=== PATIENT | male | born 1960 | race American Indian/Alaskan Native ===

== ENCOUNTER 2020-01-01 15:42 | Emergency (ER) | payer SELFPAY ==
[2020-01-01 16:34] LABS: Basophils % (Auto) 0.5 % (0.0-1.8); Eosinophils % (Auto) 0.3 % (0.0-4.3); Hematocrit 40.7 % (35.5-45.6); Hemoglobin 13.3 gm/dl (11.8-15.2); Lymphocytes # (Auto) 2.1 K/mm3 (1.2-5.4); Mean Corpuscular HGB Conc 33 % (32-34); Mean Corpuscular Volume 82 fl (84-94); Monocytes # (Auto) 0.8 K/mm3 (0.0-0.8); Monocytes % (Auto) 13.4 % (0.0-7.3); Platelet Count 195 K/mm3 (140-440); Red Blood Count 4.98 M/mm3 (3.65-5.03); Red Cell Distribution Width 16.6 % (13.2-15.2)
--- NOTE | 2020-01-01 16:54 | Emergency Department Report ---
<MYA MARCELINO - Last Filed: 01/01/20 19:55> ED Alcohol HPI - General Chief Complaint: Alcohol Stated Complaint: DETOX Time Seen by Provider: 01/01/20 16:52 - Related Data Allergies Allergy/AdvReac Type Severity Reaction Status Date / Time oxycodone AdvReac Nausea Verified 01/01/20 22:20 ED Course - Reevaluation(s) Reevaluation #1: 01/01/20 19:55 Patient will be given 1 L of normal saline to correct the mild hyponatremia and hypochloremia. Patient will be allowed to reach sobriety and we will work to have the patient transferred to a detox facility. ED Medical Decision Making - Lab Data Result diagrams: 01/01/20 16:13 01/01/20 16:13 ED Disposition Clinical Impression: Alcohol dependence Disposition: DC-01 TO HOME OR SELFCARE Condition: Stable Instructions: Abuse of Alcohol (ED) Additional Instructions: For mental health counselor, voluntary admission to [facility] has been arranged. Referrals: PRIMARY CARE, [Primary Care Provider] - 3-5 Days <JADEN MARCELINO - Last Filed: 01/02/20 10:04> ED Alcohol HPI - General Source: patient Mode of arrival: Ambulatory Limitations: No Limitations - History of Present Illness Initial Comments: Chief complaint: "I know I cannot stop by myself." HPI: This is a 59-year-old gentleman with history of sarcoidosis and alcohol use who relapsed in June. He had been alcohol free for 1 year. Recently laid off from work considering our current pandemic. He has a history of anxiety. He was unable to afford the Lexapro prescription. He denies suicidal homicidal reaction. He has attempted to to obtain admission to rehabilitation facility. He was referred to our emergency department. Last drink of beer today. He denies any physical concerns. He lives alone. Complaint: alcohol dependence Last Drink: just [employer] Chronic Alcohol Use: Yes Recent Trauma: No Associated Symptoms: denies other symptoms Treatments Prior to Arrival: none ED Review of Systems ROS: Stated complaint: DETOX Other details as noted in HPI Comment: All other systems reviewed and negative Constitutional: denies: fever, malaise Respiratory: denies: cough Cardiovascular: denies: chest pain Musculoskeletal: denies: back pain Psychiatric: anxiety. denies: depression ED Past Medical Hx - Past Medical History Previous Medical History?: Yes Additional medical history: Sarcoidosis - Surgical History Past Surgical History?: Yes Additional Surgical History: Carpal tunnel surgery. Left knee surgery - Social History Smoking Status: Never Smoker Substance Use Type: Alcohol ED Physical Exam - General Limitations: No Limitations General appearance: alert, in no apparent distress - Head Head exam: Present: atraumatic, normocephalic - Eye Eye exam: Present: normal appearance - ENT ENT exam: Present: mucous membranes moist - Neck Neck exam: Present: normal inspection, full ROM - Respiratory Respiratory exam: Present: normal lung sounds bilaterally. Absent: respiratory distress, wheezes, rales, rhonchi - Cardiovascular Cardiovascular Exam: Present: regular rate, normal rhythm, normal heart sounds. Absent: systolic murmur, diastolic murmur, rubs, gallop - GI/Abdominal GI/Abdominal exam: Present: soft, normal bowel sounds. Absent: distended, tenderness, guarding, rebound - Rectal Rectal exam: Present: deferred - Extremities Exam Extremities exam: Present: normal inspection - Neurological Exam Neurological exam: Present: alert, oriented X3 - Psychiatric Psychiatric exam: Present: normal affect, normal mood - Skin Skin exam: Present: warm, dry, intact, normal color. Absent: rash ED Course Vital Signs 01/01/20 01/01/20 01/01/20 16:03 18:57 20:00 Temperature 98.2 F 97.7 F Pulse Rate 80 94 H Respiratory 20 18 16 Rate Blood Pressure 137/88 Blood Pressure 121/86 [Right] O2 Sat by Pulse 96 96 Oximetry 01/02/20 01/02/20 06:44 06:51 Temperature 98.6 F Pulse Rate 85 Respiratory 20 Rate Blood Pressure Blood Pressure 135/97 [Right] O2 Sat by Pulse 95 Oximetry ED Medical Decision Making - Lab Data Result diagrams: 01/01/20 16:13 01/01/20 16:13 - Medical Decision Making Mr. Cage has a history of alcohol dependence. Recently reviewed labs in June. He desires placement to inpatient rehabilitation facility. He is medically clear for psychiatric care. He denies suicidal or homicidal ideation. He is cooperative and insightful. At this time Mr. Burt is clinically sober. He is discharged to pursue outpatient resources. Mental health ecological risk assessor provided guidance. Critical care attestation.: If time is entered above; I have spent that time in minutes in the direct care of this critically ill patient, excluding procedure time. ED Disposition Is pt being admited?: No Does the pt Need Aspirin: No
[2020-01-01 16:55] LABS: Bilirubin,Urine NEG (Negative); Blood,Urine NEG (Negative); Color,Urine Colorless (Yellow); Protein,Urine <15 mg/dL mg/dL (Negative); Urobilinogen,Urine < 2.0 mg/dL (<2.0)
[2020-01-01 16:58] LABS: Alanine Aminotransferase 65 units/L (7-56); BUN/Creatinine Ratio 9; Blood Urea Nitrogen 7 mg/dL (9-20); Calcium 9.2 mg/dL (8.4-10.2); Hemolysis Index 10
[2020-01-01 17:09] LABS: Amphetamine Screen,Urine PRESUMPTIVE NEGATIVE; Benzodiazepines Screen,Urine PRESUMPTIVE NEGATIVE; Cannabinoid Screen,Urine PRESUMPTIVE NEGATIVE; Cocaine Screen,Urine PRESUMPTIVE NEGATIVE; Methadone Screen,Urine PRESUMPTIVE NEGATIVE; Opiate Screen,Urine PRESUMPTIVE NEGATIVE
[2020-01-01] MEDS ORDERED: SODIUM CHLORIDE 0.9% 1000 ML 1,000 ML IV ONE (18:52)
[2020-01-01] MEDS ORDERED: SODIUM CHLORIDE 0.9% 1000 ML 1,000 ML ONE (22:12)
[2020-01-02] MEDS ORDERED: LORazepam 2 MG/ML VIAL IV ONE (09:02)
[2020-01-02 13:19] VITALS: BP 148/96
== END 2020-01-02 13:45 | disposition home or self-care (01) ==
LOC: ED 15:42
DX: F10.20 Alcohol dependence, uncomplicated (principal); D86.9 Sarcoidosis, unspecified; Z98.890 Other specified postprocedural states; Z88.8 Allergy status to other drugs, medicaments and biological substances
CPT/HCPCS: 36415; 80053; 80307; 81001; 85025; 96374; 99284; J2060; J7030; 80320; G0480

== ENCOUNTER 2020-07-21 06:32 | Emergency (ER) | payer SELFPAY ==
[2020-07-21 08:09] LABS: Basophils # (Auto) 0.1 K/mm3 (0.0-0.1); Basophils % (Auto) 1.4 % (0.0-1.8); Eosinophils % (Auto) 0.3 % (0.0-4.3); Lymphocytes # (Auto) 0.8 K/mm3 (1.2-5.4); Lymphocytes % (Auto) 20.4 % (13.4-35.0); Mean Corpuscular HGB Conc 33 % (32-34); Mean Corpuscular Volume 86 fl (84-94); Monocytes # (Auto) 0.6 K/mm3 (0.0-0.8); Monocytes % (Auto) 13.7 % (0.0-7.3); Platelet Count 162 K/mm3 (140-440); Red Blood Count 4.53 M/mm3 (3.65-5.03); Red Cell Distribution Width 15.5 % (13.2-15.2)
[2020-07-21 08:14] LABS: BUN/Creatinine Ratio 6; Blood Urea Nitrogen 5 mg/dL (9-20); Calcium 9.5 mg/dL (8.4-10.2); Hemolysis Index 3
[2020-07-21] MEDS ORDERED: LORazepam 1 MG TAB PO ONE (08:54)
--- NOTE | 2020-07-21 09:04 | Emergency Department Report ---
ED Alcohol HPI - General Chief Complaint: Alcohol Stated Complaint: ALCOHOL WITHDRAWALS Time Seen by Provider: 07/21/20 08:46 Source: patient Mode of arrival: Ambulatory Limitations: No Limitations - History of Present Illness Initial Comments: 59-year-old male presents to ED with report of alcohol abuse. Patient states he drinks a 12 pack of beer daily. States his last drink was at 1 AM this morning. Patient states he is now having tremors and feels shaky on the inside. He denies any history of alcohol withdrawal seizures. MD Complaint: alcohol withdrawal Chronic Alcohol Use: Yes Associated Symptoms: tremors. denies: nausea, vomiting, syncope, seizure, diaphoresis, abdominal pain, hematemesis, depression, suicidality Treatments Prior to Arrival: none - Related Data Allergies Allergy/AdvReac Type Severity Reaction Status Date / Time oxycodone AdvReac Nausea Verified 07/21/20 07:27 ED Review of Systems ROS: Stated complaint: ALCOHOL WITHDRAWALS Other details as noted in HPI Comment: All other systems reviewed and negative Neurological: other (Patient reports tremors) ED Past Medical Hx - Past Medical History Additional medical history: Sarcoidosis - Surgical History Additional Surgical History: Carpal tunnel surgery. Left knee surgery - Social History Smoking Status: Never Smoker Substance Use Type: Alcohol ED Physical Exam - General Limitations: No Limitations General appearance: alert, in no apparent distress - Head Head exam: Present: atraumatic, normocephalic - Eye Eye exam: Present: normal appearance, EOMI - ENT ENT exam: Present: mucous membranes moist - Neck Neck exam: Present: normal inspection - Respiratory Respiratory exam: Present: normal lung sounds bilaterally. Absent: respiratory distress - Cardiovascular Cardiovascular Exam: Present: regular rate, normal rhythm - GI/Abdominal GI/Abdominal exam: Present: soft. Absent: distended, tenderness - Extremities Exam Extremities exam: Present: normal inspection - Neurological Exam Neurological exam: Present: alert, oriented X3, other (Mild tremor noted in right hand) - Psychiatric Psychiatric exam: Present: normal affect, normal mood - Skin Skin exam: Present: warm, dry, intact, normal color ED Course Vital Signs 07/21/20 07/21/20 07/21/20 07:27 08:37 09:01 Temperature 98 F Pulse Rate 87 88 96 H Respiratory 18 15 Rate Blood Pressure 129/80 139/95 Blood Pressure 150/99 [Left] O2 Sat by Pulse 99 98 Oximetry 07/21/20 09:31 Temperature Pulse Rate 92 H Respiratory 16 Rate Blood Pressure 143/98 Blood Pressure [Left] O2 Sat by Pulse 99 Oximetry ED Medical Decision Making - Lab Data Result diagrams: 07/21/20 07:40 07/21/20 07:40 - Medical Decision Making 59-year-old male presents to ED with complaint of alcohol withdrawal. Patient denies any history of alcohol withdrawal seizures. Patient reports tremors, however appeared to only be apparent when he is aware that he is being watched by healthcare personnel. Nurse reports patient did not exhibit any tremors when she was out of his view, but when she appeared and patient was able to see her, patient became tremulous. At any rate, patient given p.o. Ativan. Vital signs not consistent with alcohol withdrawal, as he is not tachycardic or hypertensive. EtOH level is 140. Patient reports he has been in outpatient rehab previously. Patient given information for rehab programs. Will discharge at this time. - Differential Diagnosis EtOH intoxication, EtOH withdrawal Critical care attestation.: If time is entered above; I have spent that time in minutes in the direct care of this critically ill patient, excluding procedure time. ED Disposition Clinical Impression: Alcohol abuse Disposition: DC-01 TO HOME OR SELFCARE Is pt being admited?: No Condition: Stable Instructions: Abuse of Alcohol (ED) Referrals: PRIMARY CARE [Primary Care Provider] - 3-5 Days [facility] [Provider Group] - 3-5 Days [facility] [Outside] - 3-5 Days Time of Disposition: 09:35
[2020-07-21 09:40] VITALS: BP 143/98
== END 2020-07-21 09:46 | disposition home or self-care (01) ==
LOC: ED 06:32
DX: F10.10 Alcohol abuse, uncomplicated (principal); Z88.8 Allergy status to other drugs, medicaments and biological substances; Z79.899 Other long term (current) drug therapy; Z98.890 Other specified postprocedural states
CPT/HCPCS: 36415; 80048; 80320; 85025; 99283; G0480

== ENCOUNTER 2020-10-29 13:07 | Emergency (ER) | payer SELFPAY ==
--- NOTE | 2020-10-29 13:19 | Emergency Department Report ---
Stated Complaint: NUMBNESS/FOOT/HAND Time Seen by Provider: 10/29/20 13:15 - HPI History of Present Illness: Mr. Cage is a 60-year-old -[place] male that comes to the emergency room intoxicated complaining his feet are numb. He is ambulatory, took an Uber to the ER and is no acute distress. He drank a beer just prior to coming to the emergency room. Patient denies any chest pain, shortness of breath, fever or chills. He denies abdominal pain or back pain. He denies any fall or other injury. Next of kin is listed as his but when we told him we were calling her to come get him he said that would not work. I discussed with the patient his need to lay off the alcohol and his numbness will go away. He has no focal deficit as a said he is ambulatory with normal vital signs. - ROS Review of Systems: Numb feet in the context of alcohol intoxication. Per the EMR patient has been seen for the same before. No HI no SI Patient does not want help for his alcohol use - Exam Vital Signs: Vital Signs 10/29/20 13:15 Temperature 97.8 F Pulse Rate 105 H Respiratory 16 Rate Blood Pressure 135/90 O2 Sat by Pulse 98 Oximetry Physical Exam: Alert and oriented. Ambulatory. Intoxicated. Cooperative S1-S2 Lungs clear Abdomen soft nontender No CVA tenderness No focal neuro deficit DP and PT plus 2 bilateral; no swelling; sensation intact; feet warm bilateral MSE screening note: Focused history and physical exam performed. Due to findings the following was ordered: no life threat pt instructed to go home and not drink alcohol and his numb feet would improve RN asked to have family come and get pt for dc Patient discussed with doctor:: EDGAR DE LOS SANTOS ED Disposition for MSE Clinical Impression: Alcohol abuse Disposition: Z-07 MED SCREENING EXAM-LEFT Is pt being admited?: No Does the pt Need Aspirin: No Condition: Stable Instructions: Alcohol Use Disorder Additional Instructions: stop drinking Referrals: JOSE ANTONIO ABDUL MD [Staff Physician] - 3-5 Days Time of Disposition: 13:19
[2020-10-29 13:20] VITALS: BP 135/90
== END 2020-10-29 13:20 | disposition left against medical advice (07) ==
LOC: ED 13:07
DX: R20.0 Anesthesia of skin (principal); Z53.21 Procedure and treatment not carried out due to patient leaving prior to being seen by health care provider

== ENCOUNTER 2020-11-01 15:28 | Emergency (ER) | payer SELFPAY ==
[2020-11-01 15:40] VITALS: BP 133/98
--- NOTE | 2020-11-01 16:12 | Emergency Department Report ---
Chief Complaint: Medical Clearance Stated Complaint: TUNDE HAND/FEET NUMB - HPI History of Present Illness: 60-year-old -Citizen Of The [place] male presents to the emergency room stating his hands and feet are numb. Patient states this is been going on for several months. Patient started off his interview process with stating that he has been here for 3 hours. It was noted the patient was only here for 40 minutes. When asked has the patient followed up with a primary care provider he states he does not have 1 then patient states that he saw a primary care provider today and they told him to come to the emergency room. Patient was recently seen here for the same complaints on October 29, 2020. Patient was encouraged to discontinue alcohol use and was told that his numbness should improve. Patient continues to drink. - Exam Vital Signs: Vital Signs 11/01/20 15:37 Temperature 98.1 F Pulse Rate 105 H Respiratory 20 Rate Blood Pressure 133/98 O2 Sat by Pulse 96 Oximetry Physical Exam: Patient is alert and oriented no acute distress Breathing is effortless no signs of distress Patient is ambulating without difficulties MSE screening note: Focused history and physical exam performed. Due to findings the following was ordered: 60-year-old -Citizen Of [place] male presents to the emergency room stating his hands and feet are numb. Patient states this is been going on for several months. Patient started off his interview process with stating that he has been here for 3 hours. It was noted the patient was only here for 40 minutes. When asked has the patient followed up with a primary care provider he states he does not have 1 then patient states that he saw a primary care provider today and they told him to come to the emergency room. Patient was recently seen here for the same complaints on October 29, 2020. Patient was encouraged to discontinue alcohol use and was told that his numbness should improve. Patient continues to drink. Discussed with patient he needs to follow-up with a primary care provider. He needs to cut back on his alcohol use as this is most likely a contributory factor for his numbness to his hands. ED Disposition for [facility] Disposition: Z- MED SCREENING EXAM-LEFT Is pt being admited?: No Does the pt Need Aspirin: No Condition: Stable Additional Instructions: Recommend following up with a community provider such as a primary care provider. Is a need to drop primary care labs. Referrals: JOSE ANTONIO ABDUL MD [Staff Physician] - 3-5 Days [facility] [Provider Group] - 3-5 Days
== END 2020-11-01 16:00 | disposition left against medical advice (07) ==
LOC: ED 15:28
DX: R20.0 Anesthesia of skin (principal); Z53.21 Procedure and treatment not carried out due to patient leaving prior to being seen by health care provider

== ENCOUNTER 2020-11-18 02:18 | Inpatient (IN) | payer OTHER ==
[2020-11-18 03:41] LABS: Basophils % (Auto) 0.6 % (0.0-1.8); Eosinophils # (Auto) 0.1 K/mm3 (0.0-0.4); Lymphocytes # (Auto) 2.2 K/mm3 (1.2-5.4); Lymphocytes % (Auto) 43.8 % (13.4-35.0); Mean Corpuscular HGB Conc 33 % (32-34); Mean Corpuscular Volume 87 fl (84-94); Monocytes # (Auto) 0.6 K/mm3 (0.0-0.8); Platelet Count 192 K/mm3 (140-440); Red Blood Count 4.82 M/mm3 (3.65-5.03); Red Cell Distribution Width 15.6 % (13.2-15.2)
[2020-11-18 03:52] LABS: Bilirubin,Urine NEG (Negative); Blood,Urine SM (Negative); Color,Urine Straw (Yellow); Urobilinogen,Urine < 2.0 mg/dL (<2.0); WBC,Urine < 1.0 /HPF (0.0-6.0)
[2020-11-18 04:04] LABS: Alanine Aminotransferase 143 units/L (7-56); Albumin 4.7 g/dL (3.9-5); BUN/Creatinine Ratio 10; Blood Urea Nitrogen 8 mg/dL (9-20); Hemolysis Index 13
[2020-11-18] MEDS ORDERED: LORazepam 2 MG/ML VIAL IV PRN ×2 (04:37→19:16)
[2020-11-18] MEDS ORDERED: LORazepam 2 MG TAB PO PRN ×2 (04:37)
[2020-11-18] MEDS ORDERED: THIAMINE 100 MG, FOLIC ACID 1 MG, MULTIPLE VITAMIN INJ, ADULT 10 ML in SODIUM CHLORIDE ... IV ONE (04:37)
[2020-11-18] MEDS ORDERED: ACETAMINOPHEN 325 MG TAB PO PRN (04:38)
[2020-11-18] MEDS ORDERED: ONDANSETRON 4 MG ODT TAB PO PRN (04:38)
--- NOTE | 2020-11-18 04:38 | Emergency Department Report ---
<SOURAV LAO - Last Filed: 11/18/20 04:50> ED General Adult HPI - General Chief complaint: Neuro Symptoms/Deficit Stated complaint: PAIN/NUMBNESS TO HAND/FEET/ETOH X 5MTHS PUI?: No Time Seen by Provider: 11/18/20 03:43 Source: patient, RN notes reviewed Mode of arrival: Ambulatory Limitations: Other (The patient is intoxicated) - History of Present Illness Initial comments: The patient was evaluated in the emergency department for symptoms described in the history of present illness. He/she was evaluated in the context of the global COVID-19 pandemic, which necessitated consideration that the patient might be at risk for infection with the virus that causes COVID-19. Institutional protocols and algorithms that pertain to the evaluation of patients at risk for COVID-19 are in a state of rapid change based on information released by regulatory bodies including the CDC and federal and [facility] organizations. These policies and algorithms were followed during the patient's care in the emergency department. Please note that these policies, procedures and recommendations changed on a rapid basis. The patient is a 60-year-old gentleman. He presents to the ER today with a complaint of painless numbness in his bilateral feet, and hands for 5 months. The patient is intoxicated, and noted to be actively consuming alcohol during my interview. We promptly called security services, who took the patient's belongings, and placed them in a secure locker. The patient is not homicidal or suicidal. He denies physical pain at this time. He is not accompanied by friends or family at this time for collateral information or additional information. The patient then states that he would like to participate in alcohol detox. The patient lives by himself, and does not have a sober adult who can come by and pick him up. The patient denies trauma. The patient denies headache, neck pain, chest pain, abdominal pain, shortness of breath, loss of taste and smell. -: month(s) Location: left, right, upper extremity, lower extremity Quality: other Consistency: other Improves with: other Worsens with: other - Related Data Previous Rx's Medication Instructions Recorded Last Taken Type Multivitamin with Folic Acid [Cvs 400 mcg PO QDAY #30 tablet 11/18/20 Unknown Rx One Daily Essential Tablet] Permethrin 5% [Acticin 5% CREAM] 1 applicatio TP ONCE #2 tube 11/18/20 Unknown Rx chlordiazePOXIDE [Librium] 25 mg PO Q6H PRN #25 capsule 11/18/20 Unknown Rx Allergies Allergy/AdvReac Type Severity Reaction Status Date / Time oxycodone AdvReac Nausea Verified 11/01/20 15:37 ED Review of Systems Constitutional: denies: fever Eyes: denies: eye discharge ENT: denies: epistaxis Respiratory: denies: cough Cardiovascular: denies: chest pain Gastrointestinal: denies: abdominal pain Genitourinary: denies: dysuria Musculoskeletal: denies: back pain Neurological: as per HPI. denies: headache Psychiatric: denies: homicidal thoughts, suicidal thoughts ED Past Medical Hx - Past Medical History Additional medical history: Sarcoidosis - Surgical History Additional Surgical History: Carpal tunnel surgery. Left knee surgery - Social History Smoking Status: Never Smoker Substance Use Type: Alcohol - Medications Home Medications: Home Medications Medication Instructions Recorded Confirmed Last Taken Type Multivitamin with Folic Acid [Cvs 400 mcg PO QDAY #30 tablet 11/18/20 Unknown Rx One Daily Essential Tablet] Permethrin 5% [Acticin 5% CREAM] 1 applicatio TP ONCE #2 tube 11/18/20 Unknown Rx chlordiazePOXIDE [Librium] 25 mg PO Q6H PRN #25 capsule 11/18/20 Unknown Rx ED Physical Exam - General Limitations: Other (The patient is intoxicated) General appearance: alert, appears intoxicated - Head Head exam: Present: atraumatic, normocephalic - Eye Eye exam: Present: normal appearance, EOMI. Absent: nystagmus - ENT ENT exam: Present: normal exam, normal orophraynx, mucous membranes moist, normal external ear exam - Neck Neck exam: Present: normal inspection, full ROM. Absent: tenderness, m eningismus - Respiratory Respiratory exam: Present: normal lung sounds bilaterally. Absent: respiratory distress, wheezes, rales, rhonchi, stridor, decreased breath sounds - Cardiovascular Cardiovascular Exam: Present: regular rate, normal rhythm, normal heart sounds. Absent: bradycardia, tachycardia, irregular rhythm, systolic murmur, diastolic murmur, rubs, gallop - GI/Abdominal GI/Abdominal exam: Present: soft. Absent: distended, tenderness, guarding, rebound, rigid, pulsatile mass - Rectal Rectal exam: Present: deferred - Extremities Exam Extremities exam: Present: normal inspection, full ROM, other (2+ pulses noted in the bilateral upper and lower extremities. There is no palpable cord. negative Homans sign. Muscular compartments are soft. The pelvis is stable.). Absent: pedal edema, calf tenderness - Back Exam Back exam: Present: normal inspection, full ROM. Absent: tenderness, CVA tenderness (R), CVA tenderness (L), paraspinal tenderness, vertebral tenderness - Neurological Exam Neurological exam: Present: alert, other (No facial droop. Tongue midline. Extraocular movements intact bilaterally. Facial sensation intact to light touch in V1, V2, V3 distribution bilaterally. 5 and a 5 strength in 4 extremities. Sensation intact to light touch in 4 extremities.). Absent: motor sensory deficit - Psychiatric Psychiatric exam: Present: anxious. Absent: homicidal ideation, suicidal ideation - Skin Skin exam: Present: warm, other (Patient has a number of punctate macular lesions, with no pus or streaking. Suspicious for arthropod bites) ED Course - Reevaluation(s) Reevaluation #1: 11/18/20 04:44 Differential diagnosis, including but not limited to: Alcohol dependence, alcohol intoxication, neuropathy, vitamin deficiency, case management patient, general medical exam Assessment and plan: 60-year-old gentleman who was intoxicated, with a complaint of nonspecific distal extremity numbness for 5 months. He has a nonfocal motor examination, is protecting his airway, is cooperative and not homicidal suicidal. Does not meet criteria for 1013 hold Physical exam unremarkable with the exception of sporadic lesions suggestive of arthropod bites, and evidence of mild malnutrition. Patient will be held pending clinical sobriety. Laboratory studies fairly unremarkable, hyponatremia is mild, and likely related to beer consumption. Transaminitis is likely secondary to alcohol consumption. Serum toxicology study unremarkable. We will provide the patient with outpatient resources for detox. He will also be discharged with prescription for permethrin, multivitamin, and Librium. Patient will be observed in this ER pending clinical sobriety. Reevaluation #2: 11/18/20 04:50 Care will be transferred to the oncoming ER physician to discharge when clinically sober, or when a sober adult can come by and pick the patient up and assume care for him. ED Medical Decision Making - Lab Data Result diagrams: 11/18/20 03:14 11/18/20 03:14 Vital Signs 11/18/20 02:46 Temperature 97.9 F Pulse Rate 92 H Respiratory 18 Rate Blood Pressure 132/97 O2 Sat by Pulse 96 Oximetry Lab Results 11/18/20 11/18/20 11/18/20 Range/Units 03:14 03:14 03:32 WBC 5.1 (4.5-11.0) K/mm3 RBC 4.82 (3.65-5.03) M/mm3 Hgb 14.0 (11.8-15.2) gm/dl Hct 42.0 (35.5-45.6) % MCV 87 (84-94) fl MCH 29 (28-32) pg MCHC 33 (32-34) % RDW 15.6 H (13.2-15.2) % Plt Count 192 (140-440) K/mm3 Lymph % (Auto) 43.8 H (13.4-35.0) % Stephens % (Auto) 12.0 H (0.0-7.3) % Eos % (Auto) 1.0 (0.0-4.3) % Baso % (Auto) 0.6 (0.0-1.8) % Lymph # (Auto) 2.2 (1.2-5.4) K/mm3 Stephens # (Auto) 0.6 (0.0-0.8) K/mm3 Eos # (Auto) 0.1 (0.0-0.4) K/mm3 Baso # (Auto) 0.0 (0.0-0.1) K/mm3 Seg Neutrophils % 42.6 (40.0-70.0) % Seg Neutrophils # 2.2 (1.8-7.7) K/mm3 Sodium 130 L (137-145) mmol/L Potassium 4.3 (3.6-5.0) mmol/L Chloride 89.4 L (98-107) mmol/L Carbon Dioxide 25 (22-30) mmol/L Anion Gap 20 mmol/L BUN 8 L (9-20) mg/dL Creatinine 0.8 (0.8-1.3) mg/dL Estimated GFR > 60 ml/min BUN/Creatinine Ratio 10 % Glucose 92 (75-100) mg/dL Calcium 9.0 (8.4-10.2) mg/dL Magnesium (1.7-2.3) mg/dL Total Bilirubin 0.50 (0.1-1.2) mg/dL AST 172 H (5-40) units/L ALT 143 H (7-56) units/L Alkaline Phosphatase 48 (35-129) units/L Total Creatine Kinase (55-170) units/L Total Protein 8.2 (6.3-8.2) g/dL Albumin 4.7 (3.9-5) g/dL Albumin/Globulin Ratio 1.3 % Urine Color Straw (Yellow) Urine Turbidity Clear (Clear) Urine pH 6.0 (5.0-7.0) Ur Specific [place] 1.005 (1.003-1.030) Urine Protein 30 mg/dl (Negative) mg/dL Urine Glucose (UA) Neg (Negative) mg/dL Urine Ketones Neg (Negative) mg/dL Urine Blood Sm (Negative) Urine Nitrite Neg (Negative) Urine Bilirubin Neg (Negative) Urine Urobilinogen < 2.0 (<2.0) mg/dL Ur Leukocyte Esterase Neg (Negative) Urine WBC (Auto) < 1.0 (0.0-6.0) /HPF Urine RBC (Auto) 0.0 (0.0-6.0) /HPF U Epithel Cells (Auto) < 1.0 (0-13.0) /HPF Salicylates (2.8-20.0) mg/dL Acetaminophen (10.0-30.0) ug/mL Plasma/Serum Alcohol (0-0.07) % 11/18/20 11/18/20 11/18/20 Range/Units 03:37 03:37 03:37 WBC (4.5-11.0) K/mm3 RBC (3.65-5.03) M/mm3 Hgb (11.8-15.2) gm/dl Hct (35.5-45.6) % MCV (84-94) fl MCH (28-32) pg MCHC (32-34) % RDW (13.2-15.2) % Plt Count (140-440) K/mm3 Lymph % (Auto) (13.4-35.0) % Stephens % (Auto) (0.0-7.3) % Eos % (Auto) (0.0-4.3) % Baso % (Auto) (0.0-1.8) % Lymph # (Auto) (1.2-5.4) K/mm3 Stephens # (Auto) (0.0-0.8) K/mm3 Eos # (Auto) (0.0-0.4) K/mm3 Baso # (Auto) (0.0-0.1) K/mm3 Seg Neutrophils % (40.0-70.0) % Seg Neutrophils # (1.8-7.7) K/mm3 Sodium (137-145) mmol/L Potassium (3.6-5.0) mmol/L Chloride (98-107) mmol/L Carbon Dioxide (22-30) mmol/L Anion Gap mmol/L BUN (9-20) mg/dL Creatinine (0.8-1.3) mg/dL Estimated GFR ml/min BUN/Creatinine Ratio % Glucose (75-100) mg/dL Calcium (8.4-10.2) mg/dL Magnesium 2.10 (1.7-2.3) mg/dL Total Bilirubin (0.1-1.2) mg/dL AST (5-40) units/L ALT (7-56) units/L Alkaline Phosphatase (35-129) units/L Total Creatine Kinase 252 H (55-170) units/L Total Protein (6.3-8.2) g/dL Albumin (3.9-5) g/dL Albumin/Globulin Ratio % Urine Color (Yellow) Urine Turbidity (Clear) Urine pH (5.0-7.0) Ur Specific [place] (1.003-1.030) Urine Protein (Negative) mg/dL Urine Glucose (UA) (Negative) mg/dL Urine Ketones (Negative) mg/dL Urine Blood (Negative) Urine Nitrite (Negative) Urine Bilirubin (Negative) Urine Urobilinogen (<2.0) mg/dL Ur Leukocyte Esterase (Negative) Urine WBC (Auto) (0.0-6.0) /HPF Urine RBC (Auto) (0.0-6.0) /HPF U Epithel Cells (Auto) (0-13.0) /HPF Salicylates < 0.3 L (2.8-20.0) mg/dL Acetaminophen 5.0 L (10.0-30.0) ug/mL Plasma/Serum Alcohol (0-0.07) % 03/01/21 Range/Units 03:37 WBC (4.5-11.0) K/mm3 RBC (3.65-5.03) M/mm3 Hgb (11.8-15.2) gm/dl Hct (35.5-45.6) % MCV (84-94) fl MCH (28-32) pg MCHC (32-34) % RDW (13.2-15.2) % Plt Count (140-440) K/mm3 Lymph % (Auto) (13.4-35.0) % [place] % (Auto) (0.0-7.3) % Eos % (Auto) (0.0-4.3) % Baso % (Auto) (0.0-1.8) % Lymph # (Auto) (1.2-5.4) K/mm3 [place] # (Auto) (0.0-0.8) K/mm3 Eos # (Auto) (0.0-0.4) K/mm3 Baso # (Auto) (0.0-0.1) K/mm3 Seg Neutrophils % (40.0-70.0) % Seg Neutrophils # (1.8-7.7) K/mm3 Sodium (137-145) mmol/L Potassium (3.6-5.0) mmol/L Chloride (98-107) mmol/L Carbon Dioxide (22-30) mmol/L Anion Gap mmol/L BUN (9-20) mg/dL Creatinine (0.8-1.3) mg/dL Estimated GFR ml/min BUN/Creatinine Ratio % Glucose (75-100) mg/dL Calcium (8.4-10.2) mg/dL Magnesium (1.7-2.3) mg/dL Total Bilirubin (0.1-1.2) mg/dL AST (5-40) units/L ALT (7-56) units/L Alkaline Phosphatase (35-129) units/L Total Creatine Kinase (55-170) units/L Total Protein (6.3-8.2) g/dL Albumin (3.9-5) g/dL Albumin/Globulin Ratio % Urine Color (Yellow) Urine Turbidity (Clear) Urine pH (5.0-7.0) Ur Specific [place] (1.003-1.030) Urine Protein (Negative) mg/dL Urine Glucose (UA) (Negative) mg/dL Urine Ketones (Negative) mg/dL Urine Blood (Negative) Urine Nitrite (Negative) Urine Bilirubin (Negative) Urine Urobilinogen (<2.0) mg/dL Ur Leukocyte Esterase (Negative) Urine WBC (Auto) (0.0-6.0) /HPF Urine RBC (Auto) (0.0-6.0) /HPF U Epithel Cells (Auto) (0-13.0) /HPF Salicylates (2.8-20.0) mg/dL Acetaminophen (10.0-30.0) ug/mL Plasma/Serum Alcohol 0.44 H (0-0.07) % - EKG Data -: EKG Interpreted by Me EKG shows normal: sinus rhythm Rate: normal - EKG Data When compared to previous EKG there are: previous EKG unavailable 11/18/20 04:44 Sinus rhythm, 79 bpm. Normal axis, normal intervals, left ventricular hypertrophy, poor R wave progression, nonspecific ST-T wave abnormality. The patient denies chest pain. This is an abnormal EKG. This is not a STEMI. ED Disposition Clinical Impression: Alcohol withdrawal Disposition: DC-09 OP ADMIT IP TO THIS HOSP Is pt being admited?: No Does the pt Need Aspirin: No Condition: Fair Additional Instructions: Recommend that patient avoid consumption of alcohol. Please make certain to eat at least 3-4 meals per day, and take the multivitamin as directed. Use a Librium medication as needed for sensation of alcohol withdrawal and shakes. Please follow-up with outpatient detox resources that have been provided to the patient. Please follow-up with a primary care doctor within the next month. Use the permethrin cream as directed. Recommend having home/apartment evaluated by an tile grader for possible arthropod/insect infestation. Recommend washing all clothing and bedding's with hot water and soap. Recommend purchasing an [id number] mattress cover in case patient has an insect/bedbug infestation. Long-term complications of alcohol consumption include addiction, disability, loss of quality of life, and organ dysfunction. Please return to the emergency room right away with new pain, worsened pain, migration of pain, projectile vomiting, change in mental status, confusion, inability to tolerate liquid feeds, homicidality, suicidality, or any new, worsened or different symptoms not present on the initial emergency room ev aluation. Prescriptions: Permethrin 5% [Acticin 5% CREAM] 1 applicatio TP ONCE #2 tube Multivitamin with Folic Acid [Cvs One Daily Essential Tablet] 400 mcg PO QDAY #30 tablet chlordiazePOXIDE [Librium] 25 mg PO Q6H PRN #25 capsule PRN Reason: Alcohol Withdrawal Referrals: [facility] [Provider Group] - 3-5 Days <CONCHIS PRIDE - Last Filed: 11/18/20 14:20> ED Course - Reevaluation(s) Reevaluation #3: 11/18/20 08:20 Patient came out of his room wearing only his underwear. Patient still intoxicated. We will continue to monitor. Reevaluation #4: 11/18/20 11:21 Patient is still disoriented in time place and person. Alcohol level is 0.37. We will continue to monitor. Reevaluation #5: 11/18/20 14:22 Patient is alert however disoriented in time and person and he recognized that he is in [facility]. Patient found to be tachycardic at a rate of 121. CIWA protocol initiated. ED Medical Decision Making - Lab Data Result diagrams: 11/18/20 03:14 11/18/20 03:14 <DUANE ALVAREZ - Last Filed: 11/19/20 01:02> ED Review of Systems ROS: Stated complaint: PAIN/NUMBNESS TO HAND/FEET/ETOH X 5MTHS Other details as noted in HPI ED Course Vital Signs 11/18/20 11/18/20 11/18/20 02:46 04:51 06:12 Temperature 97.9 F Pulse Rate 92 H 80 77 Respiratory 18 12 12 Rate Blood Pressure 132/97 Blood Pressure 143/97 136/97 [Right] O2 Sat by Pulse 96 96 96 Oximetry 11/18/20 11/18/20 11/18/20 07:39 10:30 15:33 Temperature Pulse Rate 76 112 H 106 H Respiratory 27 H 23 21 Rate Blood Pressure Blood Pressure 135/97 117/78 116/74 [Right] O2 Sat by Pulse 100 93 94 Oximetry 11/18/20 11/19/20 19:36 00:20 Temperature 98.2 F 98.2 F Pulse Rate 115 H 111 H Respiratory 22 22 Rate Blood Pressure Blood Pressure 134/99 149/106 [Right] O2 Sat by Pulse 99 100 Oximetry - Reevaluation(s) Reevaluation #5: 11/19/20 01:02 Patient persistently tachycardic despite CIWA protocol. We will admit the patient to the hospital for alcohol withdrawal/stabilization ED Medical Decision Making - Lab Data Result diagrams: 11/18/20 03:14 11/18/20 03:14 Critical care attestation.: If time is entered above; I have spent that time in minutes in the direct care of this critically ill patient, excluding procedure time. ED Disposition Is pt being admited?: Yes Does the pt Need Aspirin: No Time of Disposition: 01:02 (Hospitalist paged (Dr Jose))
[2020-11-18] MEDS ORDERED: DEXTROSE 50% IN WATER (25GM) 50 ML VIAL IV PRN (04:40)
[2020-11-18] MEDS ORDERED: SODIUM CHLORIDE 0.9% 1000 ML 1,000 ML IV ONE ×2 (14:17→14:19)
[2020-11-18] MEDS: LORazepam 2 MG/ML VIAL IV PRN (19:42)
[2020-11-19] MEDS: LORazepam 2 MG/ML VIAL IV PRN ×4 (00:24→11:50)
[2020-11-19] MEDS ORDERED: MAGNESIUM HYDROXIDE (MOM) ORAL LIQD UDC PO PRN (01:38)
[2020-11-19] MEDS ORDERED: ONDANSETRON 4 MG/2 ML INJ IV PRN (01:38)
[2020-11-19] MEDS ORDERED: MORPHINE 2 MG/1 ML INJ IV PRN (01:38)
[2020-11-19] MEDS ORDERED: ACETAMINOPHEN 325 MG TAB PO PRN (01:38)
--- NOTE | 2020-11-19 01:47 | History and Physical Report ---
History of Present Illness Date of examination: 11/19/20 Date of admission: 11/19/2020 Chief complaint: Numbness in lower Extremities History of present illness: 40-year-old -[place] male with known history of alcohol abuse presenting to the emergency room today complaining of painless numbness in lower extremities over the past few months. Patient has been in the emergency room for couple of hours and was found to be in alcohol withdrawal. He was intoxicated on arrival and placed on the CIWA protocol. He continued to be tachycardic upon arrival. Patient unable to be discharged home as he does not have any body to pick him up. He denies any nausea vomiting, no abdominal pain, no chest pain or shortness of breath, no fever or chills. Denies any sick contacts and no recent travel, denies any contact with anyone with COVID-19. Work-up in the emergency room today showed elevated serum alcohol levels. Patient admitted with alcohol withdrawal. Past History Past Medical History: No medical history Past Surgical History: Other (left knee surgery,Carpal tunnel surgery) Social history: alcohol abuse (12 pack daily.) Family history: no significant family history Medications and Allergies Allergies Allergy/AdvReac Type Severity Reaction Status Date / Time oxycodone AdvReac Nausea Verified 11/01/20 15:37 Home Medications Medication Instructions Recorded Confirmed Last Taken Type Multivitamin with Folic Acid [Cvs 400 mcg PO QDAY #30 tablet 11/18/20 Unknown Rx One Daily Essential Tablet] Permethrin 5% [Acticin 5% CREAM] 1 applicatio TP ONCE #2 tube 11/18/20 Unknown Rx chlordiazePOXIDE [Librium] 25 mg PO Q6H PRN #25 capsule 11/18/20 Unknown Rx Active Meds: Active Medications Acetaminophen (Acetaminophen 325 Mg Tab) 650 mg PO Q6HR PRN PRN Reason: PAIN Acetaminophen (Acetaminophen 325 Mg Tab) 650 mg PO Q4H PRN PRN Reason: Pain MILD(1-3)/Fever >100.5/AGGARWAL Chlordiazepoxide HCl (Chlordiazepoxide 25 Mg Cap) 50 mg PO Q1H PRN PRN Reason: CIWA-Ar 8-15 Chlordiazepoxide HCl (Chlordiazepoxide 25 Mg Cap) 100 mg PO Q1H PRN PRN Reason: CIWA-Ar 16-25 Dextrose (Dextrose 50% In Water (25gm) 50 Ml Vial) 50 gm IV Q30MIN PRN; Protocol PRN Reason: Hypoglycemia Enoxaparin Sodium (Enoxaparin 40 Mg/0.4 Ml Inj) 40 mg SUB-Q QDAY@2200 ELIEZER; Protocol Sodium Chloride (Nacl 0.9% 1000 Ml) 1,000 mls @ 150 mls/hr IV DIRECT ELIEZER Lorazepam (Lorazepam 2 Mg Tab) 2 mg PO Q1HR PRN PRN Reason: CIWA-Ar 8-15 Last Admin: 11/18/20 06:15 Dose: 2 mg Documented by: Lorazepam (Lorazepam 2 Mg Tab) 4 mg PO Q1HR PRN PRN Reason: CIWA-Ar 16-25 Lorazepam (Lorazepam 2 Mg/Ml Vial) 4 mg IV Q15MIN PRN PRN Reason: CIWA-Ar >25 Lorazepam (Lorazepam 2 Mg/Ml Vial) 2 mg IV Q1H PRN PRN Reason: CIWA-Ar 8-15 Last Admin: 11/19/20 00:24 Dose: 2 mg Documented by: Lorazepam (Lorazepam 2 Mg/Ml Vial) 4 mg IV Q1H PRN PRN Reason: CIWA-Ar 16-25 Lorazepam (Lorazepam 2 Mg/Ml Vial) 4 mg IV Q15MIN PRN PRN Reason: CIWA-Ar >25 Magnesium Hydroxide (Magnesium Hydroxide (Mom) Oral Liqd Udc) 30 ml PO Q4H PRN PRN Reason: Constipation Morphine Sulfate (Morphine 2 Mg/1 Ml Inj) 2 mg IV Q4H PRN PRN Reason: Pain, Moderate (4-6) Ondansetron HCl (Ondansetron 4 Mg Odt Tab) 4 mg PO Q6HR PRN PRN Reason: Nausea Ondansetron HCl (Ondansetron 4 Mg/2 Ml Inj) 4 mg IV Q8H PRN PRN Reason: Nausea And Vomiting Sodium Chloride (Sodium Chloride 0.9% 10 Ml Flush Syringe) 10 ml IV BID ELIEZER Sodium Chloride (Sodium Chloride 0.9% 10 Ml Flush Syringe) 10 ml IV PRN PRN PRN Reason: LINE FLUSH Review of Systems Constitutional: no fever, no chills Ears, nose, mouth and throat: no nasal congestion, no sore throat Cardiovascular: palpitations, no chest pain Respiratory: no cough, no shortness of breath Gastrointestinal: no abdominal pain, no nausea, no vomiting, no diarrhea Genitourinary Male: no dysuria, no hematuria, no nocturia Musculoskeletal: no neck pain, no low back pain Integumentary: no rash, no pruritis Neurological: numbness (In lower extremities.), tremors, confusion, no headaches Psychiatric: no memory loss, no depression Exam - Constitutional Vitals: Temp Pulse Resp BP Pulse Ox 98.2 F 107 H 19 137/109 98 11/19/20 00:20 11/19/20 01:00 11/19/20 01:00 11/19/20 01:00 11/19/20 01:00 General appearance: Present: no acute distress, well-nourished - EENT Eyes: Present: PERRL, EOM intact. Absent: scleral icterus ENT: hearing intact, clear oral mucosa, dentition normal - Neck Neck: Present: supple, normal ROM - Respiratory Respiratory effort: normal Respiratory: bilateral: CTA - Cardiovascular Rhythm: regular Heart Sounds: Present: S1 & S2. Absent: gallop, systolic murmur, diastolic murmur, rub, click - Extremities Extremities: no ischemia, pulses intact, pulses symmetrical, No edema, normal temperature, normal color, Full ROM Peripheral Pulses: within normal limits - Abdominal General gastrointestinal: Present: soft, non-tender, non-distended, normal bowel sounds. Absent: mass - Integumentary Integumentary: Present: clear, warm, dry. Absent: rash - Musculoskeletal Musculoskeletal: strength equal bilaterally - Psychiatric Psychiatric: appropriate mood/affect, intact judgment & insight, memory intact, cooperative - Neurologic Neurologic: CNII-XII intact, no focal deficits, moves all extremities, other (Tremors in Hands.) Results - Labs CBC & Chem 7: 11/18/20 03:14 11/18/20 03:14 Labs: Abnormal lab results 11/18/20 11/18/20 11/18/20 Range/Units 03:14 03:14 03:37 RDW 15.6 H (13.2-15.2) % Lymph % (Auto) 43.8 H (13.4-35.0) % [place] % (Auto) 12.0 H (0.0-7.3) % Sodium 130 L (137-145) mmol/L Chloride 89.4 L (98-107) mmol/L BUN 8 L (9-20) mg/dL AST 172 H (5-40) units/L ALT 143 H (7-56) units/L Total Creatine Kinase 252 H (55-170) units/L Salicylates (2.8-20.0) mg/dL Acetaminophen (10.0-30.0) ug/mL Plasma/Serum Alcohol (0-0.07) % 11/18/20 11/18/20 11/18/20 Range/Units 03:37 03:37 03:37 RDW (13.2-15.2) % Lymph % (Auto) (13.4-35.0) % [place] % (Auto) (0.0-7.3) % Sodium (137-145) mmol/L Chloride (98-107) mmol/L BUN (9-20) mg/dL AST (5-40) units/L ALT (7-56) units/L Total Creatine Kinase (55-170) units/L Salicylates < 0.3 L (2.8-20.0) mg/dL Acetaminophen 5.0 L (10.0-30.0) ug/mL Plasma/Serum Alcohol 0.44 H (0-0.07) % 11/18/20 11/18/20 11/18/20 Range/Units 10:42 14:45 23:37 RDW (13.2-15.2) % Lymph % (Auto) (13.4-35.0) % [place] % (Auto) (0.0-7.3) % Sodium (137-145) mmol/L Chloride (98-107) mmol/L BUN (9-20) mg/dL AST (5-40) units/L ALT (7-56) units/L Total Creatine Kinase (55-170) units/L Salicylates (2.8-20.0) mg/dL Acetaminophen (10.0-30.0) ug/mL Plasma/Serum Alcohol 0.37 H 0.26 H 0.09 H (0-0.07) % Assessment and Plan - Patient Problems (1) Alcohol withdrawal Current Visit: Yes Status: Acute Plan to address problem: Patient placed on CIWA protocol. We will continue to monitor on telemetry. Patient counseled on quitting alcohol abuse. Patient request to be checked into an alcohol withdrawal program. (2) Elevated liver enzymes Current Visit: Yes Status: Acute Plan to address problem: Possibly secondary to alcohol abuse. Will monitor liver enzymes. We will place consult to gastroenterology for follow-up. (3) DVT prophylaxis Current Visit: Yes Status: Acute Plan to address problem: Patient placed on subcutaneous Lovenox. (4) Full code status Current Visit: Yes Status: Acute Plan to address problem: Patient is a full code.
--- NOTE | 2020-11-19 17:48 | Event Note ---
Date: 11/19/20
--- NOTE | 2020-11-19 21:28 | Consultation ---
REFERRING PHYSICIAN: Rosanna Joe MD INDICATION: Increased liver function tests. HISTORY OF PRESENT ILLNESS: The patient is a 60-year-old black male with a history of alcohol abuse, now being seen by GI for increased liver function test. The patient presented with numbness in the lower extremities. The patient had had hours of alcohol intoxication. He reported some general weakness. The patient reports a chronic history of alcohol abuse and has been told he had increased liver function tests in the past, but those have improved. Denies any weight loss. He reports he drinks a 12-pack a day. Denies any lower GI symptoms including diarrhea, constipation or rectal bleeding. The patient came to Emergency Room. Labs showed increased alcohol level. He was admitted and GI consulted with noted increased liver function test. PAST MEDICAL HISTORY: Negative. PAST SURGICAL HISTORY: Carpal tunnel. MEDICATIONS: Reviewed and updated in chart. ALLERGIES: OXYCODONE. SOCIAL HISTORY: Positive alcohol abuse. Positive smoker. FAMILY HISTORY: Negative for colon cancer, IBD, or liver disease. REVIEW OF SYSTEMS: GENERAL: Reports weakness. HEENT: No visual complaints or tinnitus. PULMONARY: No shortness of breath. No cough. No chest pain. GASTROINTESTINAL: Reports some nausea. All points of 13-point review of systems are otherwise negative. PHYSICAL EXAMINATION: VITAL SIGNS: Temperature of 97.7, pulse 94, respirations 18, blood pressure 121/90. GENERAL: Fairly well-nourished, in no acute distress. HEENT: Pupils equal, round and reactive. PULMONARY: Clear. CARDIOVASCULAR: Regular rhythm. Normal S1, S2. ABDOMEN: Positive bowel sounds. SKIN: No obvious rashes. LABORATORY DATA: Pertinent for white count of 5.1, hemoglobin and hematocrit of 14 and 42, platelet count of 192. Chem-7: Sodium of 130, potassium 4.3, chloride 89, CO2 of 25, BUN and creatinine of 8 and 0.8. AST and ALT of 172 and 143 with a normal total bilirubin of 0.5 and alkaline phosphatase of 48. ASSESSMENT: A 60-year-old male with history of chronic alcohol abuse, presented alcohol intoxication now noted to have slightly increased liver function test. Increased liver function tests are most likely secondary to his alcohol use. The patient's labs are consistent with chronic liver disease. Most of the patient's liver related issues can be managed as an outpatient. PLAN: 1. Follow labs. 2. Alcohol cessation discussed with the patient. 3. Basic liver workup including acute hepatitis panel. 4. No need for liver biopsy or other more significant intervention at this time. 5. When the patient is tolerating p.o., okay to discharge from GI standpoint. 6. We will follow up in a.m. JOB# [id number] ARTEMIO/SHAREE BARBOZA
[2020-11-19] MEDS: ENOXAPARIN 40 MG/0.4 ML INJ SUB-Q SCH (21:57)
[2020-11-19] MEDS: chlordiazePOXIDE 25 MG CAP PO PRN (21:58)
[2020-11-20] MEDS: SODIUM CHLORIDE 0.9% 1000 ML 1,000 ML IV SCH ×3 (00:40→23:43)
[2020-11-20] MEDS: LORazepam 2 MG/ML VIAL IV PRN ×6 (04:28→22:14)
[2020-11-20 05:25] LABS: Hematocrit 36.8 % (35.5-45.6); Hemoglobin 12.2 gm/dl (11.8-15.2); Lymphocytes # (Auto) 0.8 K/mm3 (1.2-5.4); Lymphocytes % (Auto) 20.1 % (13.4-35.0); Mean Corpuscular HGB Conc 33 % (32-34); Mean Corpuscular Volume 89 fl (84-94); Monocytes # (Auto) 0.6 K/mm3 (0.0-0.8); Monocytes % (Auto) 15.6 % (0.0-7.3); Platelet Count 129 K/mm3 (140-440); Red Blood Count 4.15 M/mm3 (3.65-5.03); Red Cell Distribution Width 15.3 % (13.2-15.2)
[2020-11-20 05:34] LABS: INR 1.04 (0.87-1.13)
[2020-11-20 05:42] LABS: Alanine Aminotransferase 102 units/L (7-56); Albumin 4.2 g/dL (3.9-5); BUN/Creatinine Ratio 10; Blood Urea Nitrogen 8 mg/dL (9-20); Calcium 8.9 mg/dL (8.4-10.2); Hemolysis Index 6
[2020-11-20] MEDS: chlordiazePOXIDE 25 MG CAP PO PRN ×3 (08:44→16:13)
--- NOTE | 2020-11-20 17:26 | Gastroenterology Progress Note ---
Assessment and Plan 1. GI: mild alcohol hepatitis with signs progressive withdrawal - LFT's improving - alcohol withdrawal and CIWA protocol per primary team - awaiting liver serologies - alcohol cessation discussed - no signs signioficant liver disease at this time - when otherwsie stable ok to dc from GI standpoint - will follow Subjective Date of service: 11/20/20 Interval history: - somewhat disoriented, signs etoh withdrawal, denies specific other complaints Objective - Constitutional Vitals: Temp Pulse Resp BP Pulse Ox 98.5 F 112 H 18 119/90 97 11/20/20 16:02 11/20/20 12:11 11/20/20 16:02 11/20/20 16:02 11/20/20 12:11 General appearance: no acute distress - EENT Eyes: PERRL - Respiratory Respiratory: bilateral: CTA - Cardiovascular Rhythm: regular Heart Sounds: Present: S1 & S2 - Gastrointestinal General gastrointestinal: Present: soft, non-tender - Labs CBC & Chem 7: 11/20/20 04:36 11/20/20 04:36 Labs: Laboratory Results - last 24 hr 11/20/20 11/20/20 11/20/20 00:26 04:36 04:36 WBC 3.8 L RBC 4.15 Hgb 12.2 Hct 36.8 MCV 89 MCH 29 MCHC 33 RDW 15.3 H Plt Count 129 L Lymph % (Auto) 20.1 [place] % (Auto) 15.6 H Eos % (Auto) 1.0 Baso % (Auto) 1.0 Lymph # (Auto) 0.8 L [place] # (Auto) 0.6 Eos # (Auto) 0.0 Baso # (Auto) 0.0 Seg Neutrophils % 62.3 Seg Neutrophils # 2.4 PT 13.5 INR 1.04 Sodium Potassium Chloride Carbon Dioxide Anion Gap BUN Creatinine Estimated GFR BUN/Creatinine Ratio Glucose POC Glucose 104 Calcium Total Bilirubin AST ALT Alkaline Phosphatase Total Protein Albumin Albumin/Globulin Ratio 11/20/20 11/20/20 04:36 16:35 WBC RBC Hgb Hct MCV MCH MCHC RDW Plt Count Lymph % (Auto) [place] % (Auto) Eos % (Auto) Baso % (Auto) Lymph # (Auto) [place] # (Auto) Eos # (Auto) Baso # (Auto) Seg Neutrophils % Seg Neutrophils # PT INR Sodium 136 L Potassium 3.5 L Chloride 98.8 Carbon Dioxide 31 H Anion Gap 10 BUN 8 L Creatinine 0.8 Estimated GFR > 60 BUN/Creatinine Ratio 10 Glucose 101 H POC Glucose 129 H Calcium 8.9 Total Bilirubin 0.80 AST 86 H ALT 102 H Alkaline Phosphatase 41 Total Protein 7.3 Albumin 4.2 Albumin/Globulin Ratio 1.4
[2020-11-20] MEDS ORDERED: ZIPRASIDONE MESYLATE 20 MG VIAL IM ONE (20:34)
[2020-11-20] MEDS: ENOXAPARIN 40 MG/0.4 ML INJ SUB-Q SCH (22:21)
[2020-11-21] MEDS: chlordiazePOXIDE 25 MG CAP PO PRN ×3 (02:03→18:33)
[2020-11-21] MEDS: LORazepam 2 MG/ML VIAL IV PRN ×4 (02:03→20:50)
[2020-11-21] MEDS: SODIUM CHLORIDE 0.9% 1000 ML 1,000 ML IV SCH ×2 (06:28→23:08)
--- NOTE | 2020-11-21 16:37 | Gastroenterology Progress Note ---
Assessment and Plan 1. GI: mild alcohol hepatitis with signs progressive withdrawal - LFT's improving - alcohol withdrawal and CIWA protocol per primary team - awaiting liver serologies - alcohol cessation discussed - no signs signioficant liver disease at this time - when otherwsie stable ok to dc from GI standpoint - will follow Subjective Date of service: 11/21/20 Interval history: still w/ signs withdrawal per staff Objective - Constitutional Vitals: Temp Pulse Resp BP Pulse Ox 97.8 F 87 18 135/100 94 11/21/20 07:24 11/21/20 10:00 11/21/20 07:24 11/21/20 07:24 11/21/20 07:24 General appearance: no acute distress - EENT Eyes: PERRL - Respiratory Respiratory: bilateral: CTA - Cardiovascular Rhythm: regular Heart Sounds: Present: S1 & S2 - Gastrointestinal General gastrointestinal: Present: soft, non-tender, non-distended - Labs CBC & Chem 7: 11/20/20 04:36 11/20/20 04:36 Labs: Laboratory Results - last 24 hr 11/20/20 11/20/20 11/21/20 16:35 22:07 02:22 POC Glucose 129 H 96 97 11/21/20 11/21/20 06:23 11:36 POC Glucose 74 76
[2020-11-21] MEDS: ENOXAPARIN 40 MG/0.4 ML INJ SUB-Q SCH (21:04)
[2020-11-22] MEDS: LORazepam 2 MG/ML VIAL IV PRN (05:45)
[2020-11-22] MEDS: SODIUM CHLORIDE 0.9% 1000 ML 1,000 ML IV SCH (05:45)
[2020-11-22 06:19] LABS: Alanine Aminotransferase 60 units/L (7-56); Albumin 3.5 g/dL (3.9-5); BUN/Creatinine Ratio 6; Blood Urea Nitrogen 5 mg/dL (9-20); Calcium 8.2 mg/dL (8.4-10.2); Hemolysis Index 2
[2020-11-22 12:58] VITALS: BP 136/89
--- NOTE | 2020-11-22 14:11 | Gastroenterology Progress Note ---
Assessment and Plan GI: stable w/o complaints - alcohol abstinence - diet as tolerated - will sign off, call if needed Subjective Date of service: 11/22/20 Interval history: -no GI complaints overnight. Denies abdominal pain Objective - Constitutional Vitals: Temp Pulse Resp BP Pulse Ox 97.9 F 98 H 18 136/89 99 11/22/20 12:56 11/22/20 12:56 11/22/20 12:56 11/22/20 12:56 11/22/20 12:56 General appearance: no acute distress - EENT Eyes: PERRL - Respiratory Respiratory: bilateral: CTA - Cardiovascular Rhythm: regular Heart Sounds: Present: S1 & S2 - Gastrointestinal General gastrointestinal: Present: soft, non-tender, non-distended - Labs CBC & Chem 7: 11/20/20 04:36 11/22/20 05:33 Labs: Laboratory Results - last 24 hr 11/21/20 11/22/20 11/22/20 15:54 02:28 05:33 Sodium 139 Potassium 3.2 L Chloride 105.7 Carbon Dioxide 25 Anion Gap 12 BUN 5 L Creatinine 0.8 Estimated GFR > 60 BUN/Creatinine Ratio 6 Glucose 95 POC Glucose 100 94 Calcium 8.2 L Total Bilirubin 0.80 AST 40 ALT 60 H Alkaline Phosphatase 35 Total Protein 6.6 Albumin 3.5 L Albumin/Globulin Ratio 1.1 11/22/20 11/22/20 06:07 12:01 Sodium Potassium Chloride Carbon Dioxide Anion Gap BUN Creatinine Estimated GFR BUN/Creatinine Ratio Glucose POC Glucose 88 262 H Calcium Total Bilirubin AST ALT Alkaline Phosphatase Total Protein Albumin Albumin/Globulin Ratio
== END 2020-11-22 12:35 | disposition home or self-care (01) | DRG 433 ==
LOC: ED 02:18 → 4A 11-19 01:14 → OBSVTOIN 11-20 12:00
PROVIDERS: ADMIT Internal Medicine Geriatric Medicine; ATTEND Internal Medicine
DX: K70.10 Alcoholic hepatitis without ascites (principal); F10.239 Alcohol dependence with withdrawal, unspecified; F17.200 Nicotine dependence, unspecified, uncomplicated; Z79.899 Other long term (current) drug therapy
CPT/HCPCS: 36415; 80053; 80320; 81001; 82550; 82962; 83735; 85025; 85610; 93005; 96365; 96372; 99406; G0378; G0480; J1650; J2060; J3411; J3486; J7030